=== PATIENT | female | born 2000 | race Caucasian/White ===

== ENCOUNTER 2018-11-11 15:41 | Emergency (ER) | payer OTHER ==
[~2018-11-11] VITALS: Ht 160 cm; Wt 59.0 kg
[2018-11-11] MEDS ORDERED: BIRTH CONTROL (16:01)
--- NOTE | 2018-11-11 16:10 | NUR ---
PATIENT WAS SEEN BY . URINE SENT TO LAB.
[2018-11-11 16:47] LABS: *BILIRUBIN,URIN 1+ (NEGATIVE); *BLOOD, URINE 3+ (NEGATIVE); *CLARITY,URINE TURBID (CLEAR); *COLOR,URINE YELLOW (YELLOW); *KETONES,URINE 2+ (NEGATIVE); *URINE HCG, QUAL NEGATIVE (NEGATIVE); *UROBILINOGEN,URINE 0.2 E.U./dl (NORMAL); NITRITE, URINE NEGATIVE (NEGATIVE); UGLUCOSE NEGATIVE (NEGATIVE)
[2018-11-11 16:54] LABS: LEUKOCYTE ESTERASE ,URINE 2+ (NEGATIVE)
[2018-11-11 16:55] LABS: RBC,URINE 20-50 /HPF (0-3)
[2018-11-11 16:56] LABS: BACTERIA,URINE MANY /HPF (NONE SEEN); MUCUS,URINE MANY /LPF (0-FEW); SQUAMOUS EPITHELIAL CELL,UR MODERATE /HPF (NONE SEEN); WBC,URINE TNTC /HPF (0-3)
[2018-11-11] MEDS ORDERED: CEphaleXIN 500 MG CAPSULE PO ONE (17:15)
[2018-11-11] MEDS ORDERED: PHENAZOPYRIDINE HCL 100 MG TABLET PO ONE (17:15)
[2018-11-11] MEDS ORDERED: PHENAZOPYRIDINE HCL 100 MG TABLET ONE (17:15)
[2018-11-11] MEDS ORDERED: CEphaleXIN 500 MG CAPSULE ONE (17:15)
--- NOTE | 2018-11-11 17:18 | NUR ---
DC, RX AND F/U INSTRUCTIONS GIVEN AND EXPLAINED TO PATIENT WHO STATE SHE UNDERSTANDS ALL INSTRUCTIONS.
== END 2018-11-11 17:21 | disposition home or self-care (01) ==
LOC: ER 15:44
DX: N39.0 Urinary tract infection, site not specified (principal)
CPT/HCPCS: 84703; 87086; A4663